=== PATIENT | male | born 1955 | race Caucasian/White ===

== ENCOUNTER 2019-06-15 12:55 | Emergency (ER) | payer MEDICARE, MEDICAID ==
[~2019-06-15] VITALS: Ht 170.2 cm; Wt 72.6 kg
--- NOTE | 2019-06-15 13:02 | NUR ---
BBRA 58 FROM HOME, RIGHT SIDED NECK PAIN SINCE THIS AM, TO CHAIR, HOOKED TO MONITOR, AWAITING MD LAURA
[2019-06-15] MEDS ORDERED: METHOCARBAMOL (750MG) 750 MG TABLET PO STA (13:08)
--- NOTE | 2019-06-15 13:09 | NUR ---
CLAUDIA PAYNE AT BEDSIDE
[2019-06-15] MEDS ORDERED: KETOROLAC TROMETHAMINE INJ 60 MG/2 ML VIAL IM ONE (13:30)
[2019-06-15] MEDS ORDERED: KETOROLAC TROMETHAMINE INJ 30 MG/ML VIAL ONE (13:33)
[2019-06-15] MEDS ORDERED: METHOCARBAMOL (500MG) 500 MG TABLET ONE (13:33)
[2019-06-15 14:34] VITALS: BP 164/92
--- NOTE | 2019-06-15 14:35 | NUR ---
For discharge- Patient discharged to home in stable condition. Written and verbal after care instructions given. Patient verbalizes understanding of instruction.
== END 2019-06-15 14:36 | disposition home or self-care (01) ==
LOC: ER 12:57
DX: M62.838 Other muscle spasm (principal); I10 Essential (primary) hypertension; E78.00 Pure hypercholesterolemia, unspecified; E11.9 Type 2 diabetes mellitus without complications
CPT/HCPCS: 93005; 96372; 99283; J1885